=== PATIENT | female | born 1955 ===

== ENCOUNTER 2024-10-29 05:50 | Day surgery (SDC) | payer OTHER ==
[~2024-10-29 05:50] MED LIST: LIPITOR20 MG PO; LOSARTAN POTASS50 MG PO; SYNTHROID100 MCG PO
[2024-10-29] MEDS ORDERED: VANCOMYCIN HCL 1,000 MG VIAL IR ONE (11:15)
[2024-10-29] MEDS ORDERED: CEFAZOLIN SODIUM 1,000 MG VIAL IV ONE (11:15)
[2024-10-29] MEDS ORDERED: TRAM1TAB98 PO (11:42)
[2024-10-29] MEDS ORDERED: MACROBID 100 M100 MG PO (11:42)
== END 2024-10-29 15:00 | disposition home or self-care (01) ==
LOC: CIR.AMB 05:50
PROVIDERS: ATTEND Obstetrics & Gynecology Gynecology
DX: N81.11 Cystocele, midline (principal)